=== PATIENT | male | born 1995 | race Caucasian/White ===

== ENCOUNTER 2024-05-07 22:36 | Emergency (ER) | payer SELFPAY ==
[~2024-05-07] VITALS: Ht 172.7 cm; Wt 64.0 kg
[2024-05-07 23:12] VITALS: TEMP 36.6; O2SAT 98
[2024-05-07 23:46] LABS: BASOPHILS % 0.4 % (0.0-2.0); EOSINOPHILS % 1.1 % (0.0-5.0); HEMATOCRIT. 43.2 % (42.0-52.0); HEMOGLOBIN. 15.4 g/dL (14.0-18.0); LYMPHOCYTES % 31.3 % (20.0-50.0); MEAN CORPUSCULAR HEMOGLOBIN 33.2 pg (28.0-32.0); MEAN CORPUSCULAR HGB CONC 35.5 g/dL (31.0-37.0); MEAN CORPUSCULAR VOLUME 93.4 fL (80.0-94.0); MONOCYTES % 7.6 % (2.0-8.0); NEUTROPHILS % 59.6 % (40.0-76.0); PLATELET 234 x1000/uL (130-400); RED BLOOD CELL COUNT 4.63 mill/uL (4.7-6.1); RED CELL DISTRIBUTION WIDTH 12.9 % (11.6-14.6); WHITE BLOOD COUNT 6.8 x1000/uL (4.5-11.0)
[2024-05-07] MEDS: ONDANSETRON HCL 4MG/2ML INJ IV ONE (23:47)
[2024-05-07] MEDS: SODIUM CHLORIDE 0.9% 1,000 ML IV ONE (23:47)
[2024-05-07 23:54] LABS: PROTHROMBIN TIME 11.4 sec (9.6-11.0)
[2024-05-07 23:59] LABS: CHLORIDE 106 mEq/L (98-107); POTASSIUM 3.5 mEq/L (3.5-5.1); SODIUM 143 mEq/L (136-145)
[2024-05-08] LABS: CARBON DIOXIDE 26 mEq/L (21-32)
[2024-05-08 00:01] LABS: CALCIUM 8.9 mg/dL (8.7-10.4)
[2024-05-08 00:05] LABS: CREATININE 1.2 mg/dL (0.6-1.3); GLUCOSE 163 mg/dL (70-105)
[2024-05-08 00:06] LABS: ETHANOL BLOOD 51 mg/dL (<10); UREA NITROGEN BLOOD 13 mg/dL (9-23)
[2024-05-08 00:07] LABS: ALANINE AMINOTRANSFERASE 9 IU/L (10-49); ALBUMIN 4.4 g/dL (3.2-4.8); ASPARTATE AMINOTRANSFERASE 16 IU/L (<34)
[2024-05-08 00:08] LABS: BILIRUBIN DIRECT 0.1 mg/dL (<=3.0); BILIRUBIN TOTAL 0.5 mg/dL (0.1-1.0); PROTEIN TOTAL 7.3 g/dL (6.0-8.3)
[2024-05-08] MEDS: METOCLOPRAMIDE HCL 10MG/2ML VIAL IV ONE (00:31)
[2024-05-08 00:34] LABS: TROPONIN I HIGH SENSITIVITY < 4 ng/L (3.0-53)
[2024-05-08] MEDS: HALOPERIDOL LACTATE 5MG/ML VIAL IM ONE (02:36)
[2024-05-08] MEDS: FAMOTIDINE 20MG/2ML VIAL IV ONE (02:36)
[2024-05-08] MEDS: MAGNESIUM/ALUMINUM HYDROXIDE/SIMETHICONE 30ML UDC PO ONE (02:36)
[2024-05-08] MEDS: MORPHINE SULFATE 4 MG/ML INJ (FOR IV/IM USE) IV ONE (05:15)
[2024-05-08] MEDS ORDERED: LEVETIRACETAM 1,500MG in NACL 100ML PREMIX IV SCH ×2 (05:30→06:00)
[2024-05-08] MEDS: LEVETIRACETAM 1500MG PREMIX 100 ML IV NR (05:49)
[2024-05-08 05:53] VITALS: BP 116/64; PULSE 48; RESP 16; O2SAT 98
[2024-05-08] MEDS ORDERED: IOHEXOL-350 100 ML BOTTLE ONE (07:25)
== END 2024-05-08 06:13 | disposition short-term general hospital (02) ==
LOC: ER 22:36 → EDBEDREQ 05-08 04:13 → ER 05-08 06:13
DX: S06.6X9A Traumatic subarachnoid hemorrhage with loss of consciousness of unspecified duration, initial encounter (principal); S02.119A Unspecified fracture of occiput, initial encounter for closed fracture; G93.89 Other specified disorders of brain; R11.2 Nausea with vomiting, unspecified; F12.90 Cannabis use, unspecified, uncomplicated; Z79.899 Other long term (current) drug therapy; F10.90 Alcohol use, unspecified, uncomplicated; X58.XXXA Exposure to other specified factors, initial encounter; Y93.89 Activity, other specified; Y92.89 Other specified places as the place of occurrence of the external cause; Y99.8 Other external cause status; Y90.9 Presence of alcohol in blood, level not specified
CPT/HCPCS: 80076; 80048; 80320; 85025; 85610; 84484; 36415; 71045; 93005; 96361; 96375 ×2; 99291; 70496; 70498; 70450; 74176; 96365; J2405; J7030; Q9967; J1953; J3490; J1630; J2765; J2270; G0480